=== PATIENT | female | born 1985 | race African-American/Black ===

== ENCOUNTER 2018-01-16 10:35 | Inpatient (IN) | payer OTHER ==
[2018-01-16] MEDS ORDERED: DEXTROSE 5%-LACTATED RINGERS 1,000 ML IV ONE (11:00)
[2018-01-16] MEDS ORDERED: OXYTOCIN 20 UNITS in 0.9% NS 20 UNIT/1,000 ML INFUS.BAG IV ONE ×2 (11:12→15:56)
[2018-01-16] MEDS ORDERED: LIDOCAINE HCL 1% PRESERVATIVE FREE - 30ML VIAL ONE (11:18)
[2018-01-16 11:26] VITALS: BMI 28.1
[2018-01-16] MEDS ORDERED: BENZOCAINE 20% 57 GM BOTTLE TP PRN (11:26)
[2018-01-16] MEDS ORDERED: IBUPROFEN 600 MG TABLET (FP) PO PRN (11:26)
[2018-01-16] MEDS ORDERED: ACETAMINOPHEN 325 MG TABLET (FP) PO PRN (11:26)
[2018-01-16] MEDS ORDERED: WITCH HAZEL 50% (TUCKS) 40 PAD/JAR PAD TP PRN (11:26)
[2018-01-16] MEDS ORDERED: BISACODYL 10 MG SUPP.RECT RC PRN (11:26)
[2018-01-16] MEDS ORDERED: BENZOCAINE 28 GM HEMORRHOIDAL OINTMENT TP PRN (11:26)
[2018-01-16] MEDS ORDERED: METHYLERGONOVINE MALEATE 0.2 MG/1 ML AMP IM PRN (11:26)
[2018-01-16] MEDS ORDERED: OXYTOCIN 20 UNITS in 0.9% NS 20 UNIT/1,000 ML INFUS.BAG IV SCH (11:30)
[2018-01-16] MEDS ORDERED: D5W-LR W/ 20 UNITS OXYTOCIN 1,000 ML IV SCH (11:30)
--- NOTE | 2018-01-16 11:34 | HP ---
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: Alzheimer's, CVA, Dementia, Migraine, Multiple Sclerosis, Peripheral Neuropathy, Parkinson's, Seizure, Syncope, TIA, Vertigo, Other Cardiovascular: No: AFIB, Aneurysm, Aortic Insufficiency, Aortic Stenosis, CAD, CHF, Deep Vein Thrombosis, HTN, Hyperlipdemia, NE, Mitral Insufficiency, Mitral Stenosis, Murmur, Pulmonary Hypertension, Other Pulmonary: No: Asthma, Bronchitis, Cancer, COPD, O2 Dependent, Pneumonia, Previously Intubated, Pulmonary Embolus, Pulmonary Fibrosis, Sleep Apnea, Other Gastrointestinal: No: Ascites, Cancer, Constipation, Crohn's Disease, Diverticulitis, Diverticulosis, Esophageal Varices, Gastritis, GERD, GI Bleed, Hemorrhoids, Hiatal Hernia, Inflamatory Bowel Disease, Irritable Bowel Disease, Pancreatitis, Peptic Ulcer Disease, Ulcerative Colitis, Other Renal/: No: Renal Failure, Renal Inusuff, BPH, Cancer, Hematuria, Hemodialysis , Neurogenic Bladder, Renal Calculi, UTI, Other ...: 5 ...Para: 2 ...Term: 2 ...: 0 ...Spon : 0 ...Induced : 2 ...Multiple Gestation: 0 ...LMP: 04/18/17 ... Weeks Gestation by Dates: 39.0 ...EDC by Dates: 01/23/18 ...EDC by Sono: 01/23/18 Endocrine: No: Ovidio's Disease, Eugenio's Disease, Diabetes Insipidus, Diabetes Mellitus, Hyperparathyroidism, Hyperthyroidism, Hypothyroidism, Osteopenia, SIADH, Other - Past Surgical History Past Surgical History: Yes: None. No: AAA Repair, AICD, Amputation, Appendectomy, Arthrosocopy, AV Fistula/Graft, Bariatric Surgery, Breast Biopsy, Bypass, CABG, Carotid Endarterectomy, Cataract Removal, Cholecystectomy, Colectomy, Colonoscopy, Colostomy, Craniotomy, , Cystectomy, Hernia Repair, Hysterectomy, Ileal Conduit, Ileosotomy, Joint Replacement, Kidney Transplant, Laminectomy, Liver Transplant, Mastectomy, Nephrectomy, Oopherectomy , Orchiectomy, Permanent Pacemaker, Prostatectomy, Splenectomy, Stent, Thoracotomy, TURP, Tonsillectomy, Tubal Ligation, Upper Endoscopy, Valve Replacement, Vasectomy, Vein Stripping/Ligation Hx Myomectomy: No Hx Transabdominal Cerclage: No - Smoking History Smoking history: Never smoked Have you smoked in the past 12 months: No - Alcohol/Substance Use Hx Alcohol Use: No History of Substance Use: reports: None. denies: Cocaine, Heroin, Marijuana, Prescription, Tranquilizers - Social History ADL: Independent History of Recent Travel: No Home Medications - Allergies Allergies/Adverse Reactions: Allergies Allergy/AdvReac Type Severity Reaction Status Date / Time No Known Allergies Allergy Verified 01/16/18 11:06 - Home Medications Home Medications: Ambulatory Orders Ferrous Sulfate 1 tab PO DAILY 07/21/14 Vitamins (Sjr) - 1 tab PO DAILY #0 tablet 07/30/14 Review of Systems - Review of Systems Constitutional: reports: No Symptoms Eyes: reports: No Symptoms HENT: reports: No Symptoms Neck: reports: No Symptoms Respiratory: reports: No Symptoms Gastrointestinal: reports: No Symptoms Genitourinary: reports: No Symptoms Breasts: reports: No Symptoms Reported Musculoskeletal: reports: No Symptoms Integumentary: reports: No Symptoms Neurological: reports: No Symptoms Physical Exam - Maternity Vital Signs: Vital Signs Temperature 97.6 F 01/16/18 11:00 Pulse Rate 90 01/16/18 11:00 Respiratory Rate 20 01/16/18 11:00 Blood Pressure 103/60 01/16/18 11:00 O2 Sat by Pulse Oximetry (%) Constitutional: Yes: Well Nourished, No Distress, Calm Eyes: Yes: WNL, Conjunctiva Clear, EOM Intact HENT: Yes: WNL, Atraumatic, Normocephalic Neck: Yes: WNL, Supple, Trachea Midline Cardiovascular: Yes: WNL, Regular Rate and Rhythm Breast(s): Yes: WNL - Abdominal Exam/OB Fundal Height: 40 Number of Fetuses: Single Presentation: Vertex Contractions: Yes Regularity: Regular Intensity: Mod/Strong Monitor Mode: External Heart Rate Location: [facility] Category: I Accelerations: Uniform Decelerations: None - Vaginal Exam/OB Vaginal Bleediing: Bloody Show Speculum Exam: No Dilatation (cm): full Effacement (%): 100 Amniotic Membrane Status: Intact Presentation: Vertex/Position Station: +1 - Physical Exam Musculoskeletal: Yes: WNL Extremities: Yes: WNL Edema: LLE: Trace, RLE: Trace Integumentary: Yes: WNL Deep Tendon Reflex Grade: Normal +2 Psychiatric: Yes: WNL Hemorrhage Risk Assessment - Risk Factors Medium Risk Factors: Yes: None High Risk Factors: Yes: None Risk Score: 1 Risk Level: Medium Risk Problem List - Problems (1) with 39 completed weeks gestation Code(s): Z3A.39 - 39 WEEKS GESTATION OF (2) Labor established Code(s): LSC7916 - Assessment/Plan admit for vaginal delivery
[2018-01-16 11:39] LABS: BASO % 0.8 % (0-2.0); EOS % 0.6 % (0-4.5); HEMATOCRIT 37.7 % (32.4-45.2); HEMOGLOBIN 12.8 GM/dL (10.7-15.3); LYMPH % 23.3 % (8-40); MCH 30.2 pg (25.7-33.7); MONO % 8.2 % (3.8-10.2); NEUT % 67.1 % (42.8-82.8); PLATELET COUNT 198 K/MM3 (134-434); RBC 4.24 M/mm3 (3.60-5.2); RDW 12.9 % (11.6-15.6); WHITE BLOOD COUNT 5.4 K/mm3 (4.0-10.0)
[2018-01-16 12:00] LABS: INR 0.96 (0.82-1.09); PROTHROMBIN TIME (PATIENT) 10.8 SEC (9.98-11.88)
[2018-01-16 12:03] LABS: ACTIVATED PTT 27.6 SECONDS (26.9-34.4)
[2018-01-16 12:04] LABS: ANION GAP 13 (8-16); BLOOD UREA NITROGEN 6 mg/dL (7-18); CALCIUM 8.8 mg/dL (8.5-10.1); CHLORIDE 104 mmol/L (98-107); CO2 20 mmol/L (21-32); CREATININE 0.7 mg/dL (0.55-1.02); GLUCOSE,RANDOM 111 mg/dL (74-106); POTASSIUM 4.1 mmol/L (3.5-5.1); SODIUM 137 mmol/L (136-145)
[2018-01-16] MEDS: FERROUS SO4 325 MG TABLET (FP) PO SCH (16:47)
--- NOTE | 2018-01-17 05:50 | PN ---
Post Progress Note - Subjective Subjective: 32 yo Para 3 status post vaginal delivery, seen and evaluated. Doing well. Post Day: 1 Type of Delivery: Vital Signs: Vital Signs Temperature 98.9 F 01/17/18 05:35 Pulse Rate 64 01/17/18 05:35 Respiratory Rate 20 01/17/18 05:35 Blood Pressure 111/58 01/17/18 05:35 O2 Sat by Pulse Oximetry (%) Breast Exam: Yes: Soft Uterus: Yes: Fundus Firm Abdomen/GI: Yes: Abdomen soft, Tolerating PO Lochia: Yes: Rubra Lochia, amount: Moderate Extremities: Yes: Calves non-tender Perineum: Yes: Intact Activity: Ambulating - Labs Labs: CBC WBC 5.4 K/mm3 (4.0-10.0) D 01/16/18 11:25 RBC 4.24 M/mm3 (3.60-5.2) 01/16/18 11:25 Hgb 12.8 GM/dL (10.7-15.3) 01/16/18 11:25 Hct 37.7 % (32.4-45.2) 01/16/18 11:25 MCV 89.0 fl (80-96) 01/16/18 11:25 MCH 30.2 pg (25.7-33.7) 01/16/18 11:25 MCHC 34.0 g/dl (32.0-36.0) 01/16/18 11:25 RDW 12.9 % (11.6-15.6) 01/16/18 11:25 Plt Count 198 K/MM3 (134-434) D 01/16/18 11:25 MPV 9.0 fl (7.5-11.1) 01/16/18 11:25 Neutrophils % 67.1 % (42.8-82.8) 01/16/18 11:25 Lymphocytes % 23.3 % (8-40) 01/16/18 11:25 Monocytes % 8.2 % (3.8-10.2) 01/16/18 11:25 Eosinophils % 0.6 % (0-4.5) 01/16/18 11:25 Basophils % 0.8 % (0-2.0) 01/16/18 11:25 Assessment/Plan Status post vaginal delivery Stable Continue routine care
[2018-01-17] MEDS: FERROUS SO4 325 MG TABLET (FP) PO SCH ×2 (08:18→17:22)
[2018-01-17 09:02] LABS: BASO % 0.6 % (0-2.0); EOS % 1.5 % (0-4.5); HEMATOCRIT 33.6 % (32.4-45.2); HEMOGLOBIN 11.6 GM/dL (10.7-15.3); LYMPH % 20.5 % (8-40); MCH 30.6 pg (25.7-33.7); MCHC 34.5 g/dl (32.0-36.0); MEAN CELL VOLUME 88.9 fl (80-96); MEAN PLT VOLUME 9.3 fl (7.5-11.1); NEUT % 66.4 % (42.8-82.8); PLATELET COUNT 193 K/MM3 (134-434); RBC 3.78 M/mm3 (3.60-5.2); RDW 13.2 % (11.6-15.6); WHITE BLOOD COUNT 6.8 K/mm3 (4.0-10.0)
[2018-01-17] MEDS ORDERED: FLU VACCINE QUAD 60 MCG/0.5 ML (MDV 17-18) IM ONE (10:00)
[2018-01-17] MEDS ORDERED: FERROUS SULFATE PO SCH (10:00)
[2018-01-17] MEDS: PRENATAL VITAMINS W/ FOLIC ACID TABLET (FP) PO SCH (10:29)
[2018-01-17] MEDS ORDERED: DIPHTH,PERTUSS(ACELL),TET 0.5 ML DISP.SYRIN IM ONE ×2 (11:30→12:00)
[2018-01-17] MEDS ORDERED: FLU VACC QS2017-18 36MOS UP/PF 60 MCG/0.5 ML SYRINGE IM ONE (12:00)
[2018-01-17] MEDS ORDERED: SENNOSIDES/DOCUSATE COMBO (SENNA PLUS) TABLET (UD) PO PRN (22:00)
--- NOTE | 2018-01-18 07:05 | DS ---
Physical Exam-[facility]PUNCHER Vital Signs: Vital Signs Temperature 98.0 F 01/17/18 21:00 Pulse Rate 72 01/17/18 21:00 Respiratory Rate 20 01/17/18 21:00 Blood Pressure 111/41 01/17/18 21:00 O2 Sat by Pulse Oximetry (%) 96 01/17/18 21:31 Constitutional: Yes: Well Nourished, No Distress, Calm Eyes: Yes: WNL, Conjunctiva Clear, EOM Intact HENT: Yes: WNL, Atraumatic, Normocephalic Neck: Yes: WNL, Supple, Trachea Midline Cardiovascular: Yes: WNL, Regular Rate and Rhythm Respiratory: Yes: WNL, Regular, CTA Bilaterally Gastrointestinal: Yes: WNL ...Rectal Exam: Yes: WNL Renal/: Yes: WNL ....Post : Yes: Uterus firm, Uterus non-tender, Slight lochia rubra Breast(s): Yes: WNL Musculoskeletal: Yes: WNL Extremities: Yes: WNL Edema: No Integumentary: Yes: WNL Neurological: Yes: WNL, Alert, Oriented ...Motor Strength: WNL Psychiatric: Yes: WNL, Alert, Oriented Labs: CBC, BMP 01/17/18 07:45 01/16/18 11:25 Delivery - Delivery Vaginal Delivery: Spontaneous (no complication) Type of Anesthesia: Local Episiotomy/Laceration: Perineal Extension/lac, 1st degree EBL (cc): 300 Delivery, Single - Stages of Labor Date 1st Stage Initiatied: 01/16/18 Time 1st Stage Initiated: 08:00 Date 2nd Stage Initiated: 01/16/18 Time 2nd Stage Initiated: 11:10 Date of Delivery: 01/16/18 Time of Delivery: 11:13 Time Placenta Delivered: 11:17 Placenta: Yes: Spontaneous - 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 Gender: Female Weight: 7 lb 11 oz Position: Left, OA Total Hours ROM (Hrs/Mins): 0/7 - 1 Minute Total Score: 9 5 Minutes Total Score: 9 - Feeding Plan Initial Plan: Exclusive throughout hospitalization Discharge Summary Reason For Visit: LABOR Current Active Problems Labor established (Acute) with 39 completed weeks gestation (Acute) Status post normal vaginal delivery (Acute) Procedures: Principal: Hospital Course: non complicated Condition: Good - Instructions Diet, Activity, Other Instructions: regular diet, follow up [facility] care 4 weeks, no intercourse Referrals: Sebas Long MD [Staff Physician] - Disposition: HOME - Home Medications Comprehensive Discharge Medication List: Ambulatory Orders Ferrous Sulfate 1 tab PO DAILY 07/21/14 Vitamins (Sjr) - 1 tab PO DAILY #0 tablet 07/30/14 Ibuprofen [Motrin Ib] 400 mg PO BID PRN #30 tablet 01/17/18
[2018-01-18] MEDS: FERROUS SO4 325 MG TABLET (FP) PO SCH (08:17)
[2018-01-18] MEDS: PRENATAL VITAMINS W/ FOLIC ACID TABLET (FP) PO SCH (09:48)
[2018-01-18 10:53] VITALS: BP 128/61; PULSE 71; TEMP 98.4
== END 2018-01-18 11:30 | disposition home or self-care (01) | DRG 560 ==
LOC: JDEL 10:35 → JLDR 11:03 → J3W 14:44
PROVIDERS: ADMIT Obstetrics & Gynecology; ATTEND Obstetrics & Gynecology
PROC: 10E0XZZ Delivery of Products of Conception, External Approach (ICD-10-PCS; principal; 2018-01-16)
PROC: 0W8NXZZ Division of Female Perineum, External Approach (ICD-10-PCS; 2018-01-16)
PROC: 0HQ9XZZ Repair Perineum Skin, External Approach (ICD-10-PCS; 2018-01-16)
DX: O70.0 First degree perineal laceration during delivery (principal); Z3A.39 39 weeks gestation of pregnancy; Z37.0 Single live birth
CPT/HCPCS: 36415; 59409; 80048; 85025; 85610; 85730; 86593; 86850; 86900; 86901; 90686; 90715